=== PATIENT | female | born 1970 | race African-American/Black ===

== ENCOUNTER 2016-09-28 20:51 | Emergency (ER) | payer MEDICAID ==
[~2016-09-28] VITALS: Ht 162.6 cm; Wt 55.0 kg
[2016-09-28 20:59] VITALS: BP 174/64
== END 2016-09-29 01:00 | disposition left against medical advice (07) ==
LOC: ER 23:11
DX: F10.129 Alcohol abuse with intoxication, unspecified (principal); Z53.21 Procedure and treatment not carried out due to patient leaving prior to being seen by health care provider

== ENCOUNTER 2019-06-25 21:33 | Emergency (ER) | payer MEDICAID ==
[~2019-06-25] VITALS: Ht 177.8 cm; Wt 64.0 kg
[2019-06-25 22:30] VITALS: BP 121/68
== END 2019-06-25 23:30 | disposition home or self-care (01) ==
LOC: ER 21:33
DX: F10.129 Alcohol abuse with intoxication, unspecified (principal); Y90.0 Blood alcohol level of less than 20 mg/100 ml
CPT/HCPCS: 99283